=== PATIENT | male | born 1980 | race Caucasian/White ===

== ENCOUNTER 2021-12-19 07:48 | Day surgery (SDC) | payer OTHER, SELFPAY ==
[2021-12-19] VITALS (21 sets, daily range): BP systolic 114–145; BP diastolic 56–91; PULSE 67–98; RESP 14–25; TEMP 36.4–37.1; O2SAT 93–98
--- NOTE | ~2021-12-19 | CT_ITS ---
EXAMINATION: CT abdomen pelvis w con INDICATION: Right lower quadrant pain TECHNIQUE: Computed tomographic images of the abdomen and pelvis were obtained after the administrati on of 100 cc of Omnipaque 350 intravenous contrast. The dose-length product (DLP) was 1423.45 mGy-cm. Automated exposure control and iterative reconstruction technique were employed. COMPARISON: None available FINDINGS: The lung bases are clear. The heart size is normal. Cysts of the liver measure up to 2.5 cm in the right hepatic lobe. The spleen, pancreas, gallbladder, and adrenal glands are normal. The kid neys are unremarkable. No pathologically enlarged abdominal or pelvic lymph nodes are identified. The re is no free intraperitoneal gas or evidence of bowel obstruction. The dilated appendix measures melissa roximately 11 mm at its tip. There is a small amount of edematous stranding of the periappendiceal fa t. No perforation or adjacent fluid collection are identified. There is a fat-containing left inguina l hernia. A small fat-containing umbilical hernia is also noted. Colonic diverticulosis is present wi thout evidence of diverticulitis. IMPRESSION: 1. Uncomplicated acute appendicitis. Reviewed, dictated and finalized at location A.
--- NOTE | 2021-12-19 08:05 | ED.ABDPAIN ---
HPI - Abdominal Pain General Chief Complaint: Abdominal Pain Stated Complaint: RLQ pain Time Seen by Provider: 12/19/21 08:00 Source: patient Mode of arrival: ambulatory Limitations: no limitations History of Present Illness HPI narrative: Pt sasy he felt nauseated and had some burning lower abdominal pain about 0300, patient states the pain localized to his RLQ about 0500 and has persisted. Pt has no prior abdominal surgical history. Pt denies urininary symptoms MD elicited complaint: abdominal pain Pertinent past history: none Pain Consistency: constant Location: RLQ Severity: moderate Quality: aching Radiation: none Migration to: no migration Exacerbating factors: nothing Relieving factors: nothing Associated symptoms: nausea Related Data Allergies Allergy/AdvReac Type Severity Reaction Status Date / Time No Known Allergies Allergy Unverified 12/19/21 08:01 Review of Systems Review of Systems: All systems reviewed & are unremarkable except as noted in HPI and below PMFSH Past Medical History Medical History (Updated 12/19/21 @ 12:52 by David Bowden MD) Hyperlipidemia Snoring Surgical History Surgical History History of inguinal hernia repair, bilateral as a child Family History Family History Other No pertinent family history Social History Social History Social History: Patient designates his , Fannie, to be his medical decision-maker if needed. Smoking status: Never smoker Alcohol intake: current Alcohol use details: 3-4 drinks at night about 3 nights per week. Substance use: never Living arrangements: with family Additional living arrangements comments: Lives with his , Fannie. 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 Gender identity (if verbalized by the patient): Male Sexual Orientation (if Verbalized by the Patient): Straight or Heterosexual Exam Const: General: no acute distress Orientation/consciousness: patient oriented x3 Resp: Effort & Inspection: normal respiratory effort Auscultation: clear to auscultation bilaterally Cardio: Rate: regular rate Rhythm: regular rhythm GI: GI Palp: Yes Soft to palpation and Yes Tenderness to palpation present (GI) (RLQ at [facility]) Percussion: Yes normal to percussion Auscultation: normal bowel sounds Back/Spine/Pelvis: Back: no CVA tenderness Skin: General skin exam: normal color Rashes: no rashes Neuro: General: patient oriented x3, moves all extremities and no focal motor deficits Extrem: General: normal to inspection and no clubbing, cyanosis or edema Psych: Appearance: grossly normal Mental Status: mental status grossly normal Affect: normal affect Thought content: Yes Normal thought content present Course Course Emergency Course: d/w dr cifuentes will have PA come see pt Vital Signs Vital signs: Vital Signs Temperature 97.6 F 12/19/21 07:53 Pulse Rate 93 12/19/21 07:53 Respiratory Rate 18 12/19/21 07:53 Blood Pressure 145/80 H 12/19/21 07:53 Pulse Oximetry 98 12/19/21 07:53 Temperature 98.8 F 12/19/21 12:37 Pulse Rate 91 12/19/21 12:37 Respiratory Rate 18 12/19/21 12:37 Blood Pressure 134/76 12/19/21 12:37 Pulse Oximetry 98 12/19/21 12:37 MDM - Abdominal Pain Lab Data Result diagrams: 12/19/21 08:18 12/19/21 08:18 Labs: Lab Results 12/19/21 12/19/21 12/19/21 Range/Units 08:17 08:18 08:18 WBC 13.3 H (4.5-10.0) K/mm3 RBC 5.13 (4.6-6.20) M/mm3 Hgb 15.7 (14.0-18.0) g/dL Hct 45.4 (42.0-52.0) % MCV 88.5 (80-100) fl MCH 30.6 (26-34) pg MCHC 34.6 (32-36) g/dl RDW 12.2 (11.5-14.5) % Plt Count 232 (150-375) k/mm3 MPV 12.0 H (7.4-10.4) fl [place]
[2021-12-19] MEDS: ONDANSETRON INJ 4 MG/2 ML VIAL IV PUSH (08:28)
[2021-12-19 08:29] LABS: Basophils Percent Auto 0.3 % (0.2-1.2); Eosinophils Absolute Auto 0.1 K/mm3 (0-0.3); Eosinophils Percent Auto 0.4 % (0-4.4); Hematocrit 45.4 % (42.0-52.0); Hemoglobin 15.7 g/dL (14.0-18.0); Immature Granulocyte Absolute 0.08 K/mm3 (0.00-0.031); Immature Granulocyte Percent A 0.6 % (0-0.5); Lymphocytes Absolute Auto 1.15 K/mm3 (0.9-3.2); Lymphocytes Percent Auto 8.6 % (18.3-44.2); Mean Corpuscular HGB Conc 34.6 g/dl (32-36); Mean Corpuscular Hemoglobin 30.6 pg (26-34); Mean Corpuscular Volume 88.5 fl (80-100); Monocytes Absolute Auto 1.1 K/mm3 (0.1-0.6); Monocytes Percent Auto 8.1 % (2.6-8.5); Neutrophils Absolute Auto 10.9 K/mm3 (1.3-6.7); Platelet Count Result 232 k/mm3 (150-375); Red Blood Count 5.13 M/mm3 (4.6-6.20); Red Cell Distribution Width 12.2 % (11.5-14.5); White Blood Count 13.3 K/mm3 (4.5-10.0)
[2021-12-19 08:34] LABS: Mucus Urine Heavy /lpf; RBC Urine 0-2 /hpf (0-2); WBC Urine 0-3 /hpf
[2021-12-19 08:35] LABS: Appearance Urine Clear (Clear); Bilirubin Urine Negative (Negative); Blood Urine Negative (Negative); Color Urine Yellow (Yellow); Glucose Urine UA Negative (Negative); Ketones Urine Negative (Negative); Leukocyte Esterase Ur Negative LEU/UL (Negative); Nitrate Urine Negative (Negative); Protein Urine Negative (Negative); Specific Grav Ur >= 1.030 (1.001-1.035); Urobilinogen Urine 0.2 mg/dL (<2.0); pH Urine 5.5 (5.0-9.0)
[2021-12-19 08:36] LABS: Add Urine Microscopic? NO
[2021-12-19 08:38] LABS: Alanine Aminotransferase 33 U/L (4-50); Albumin Level 4.6 g/dL (3.5-5.1); Alkaline Phosphatase 102 U/L (38-126); Anion Gap 10 mmol/L (8-16); Aspartate Amino Transferase 32 U/L (17-59); Bilirubin,Total 0.8 mg/dL (0.2-1.3); Blood Urea Nitrogen 15 mg/dL (9-20); Calcium 8.9 mg/dL (8.4-10.2); Carbon Dioxide 23 mmol/L (22-30); Chloride 105 mmol/L (98-107); Estimated CRCL calculation 123 ml/min; Estimated Glomerular Filt Rate > 60; Glucose 120 mg/dL (65-110); Potassium 4.1 mmol/L (3.4-5.0); Sodium 138 mmol/L (137-145)
[2021-12-19 08:40] LABS: Partial Thromboplastin Time 20.2 SECONDS (22.3-36.8); Prothrombin Time 12.8 Seconds (11.1-14.7)
--- NOTE | 2021-12-19 10:51 | PM.IMHP ---
H&P: HPI History of Present Illness Date/Time: 12/19/21 10:51 Chief Complaint: RLQ abdominal pain Narrative: This is a 41 year old male who presented to the ER with complaints of RLQ abdominal pain starting this morning. He reports waking from sleep around 3:00 am with diffuse abdominal pain in his central abdomen. He reports this was initially a mild, burning pain. He tried going back to sleep, but felt like he had to have a BM. He was able to get up to the bathroom and had a normal BM, but started feeling more abdominal pain with associated nausea and chills. His pain began to localize to the RLQ and became a sharper pain. The pain continued to worsen, and he came into the ER for evaluation. CT scan of the abdomen and pelvis showed acute uncomplicated appendicitis. He had mild leukocytosis. Our service was consulted by the ED physician and he is now seen in the ER with his , Fannie, at the bedside. He reports his pain is aggravated by movement and bending. He denies any vomiting, fever, or change in bowel habits. He does report having pain in his RLQ a few months ago, but much more mild and resolved spontaneously. He reports having a colonoscopy over 10 years ago due to having GI issues and this was reportedly normal. He reports being told he may have IBS. He does not take any medications daily. He reportedly was prescribed a statin drug for hypercholesterolemia. but has not been compliant recently due to forgetting to take his medication. He denies any other symptoms at this time and was vaccinated for COVID with a Moderna booster within the past 6 months. Review of Systems Review of Systems: All systems reviewed & are unremarkable except as noted in HPI and below Constitutional: Constitutional: Reports as per HPI, Reports chills, Denies fatigue and Denies fever(s) Eyes: Eyes: Reports no additional eye complaints ENT: Reports system reviewed and no additional complaints, except as documented and Reports Normal hearing present Cardiovascular: Cardiovascular: Reports no additional cardiovascular complaints, Denies chest pain and Denies leg edema Respiratory: Respiratory: Reports no additional respiratory complaints, Denies cough and Denies dyspnea Gastrointestinal: Gastrointestinal: Reports as per HPI, Reports no additional gastrointestinal complaints, Reports abdominal pain, Denies bloating, Denies change in bowel habits, Denies change in stool character, Denies constipation, Denies diarrhea, Reports nausea and Denies vomiting Genitourinary: Genitourinary: Reports no additional male genitourinary complaints, Denies hematuria and Denies dysuria Musculoskeletal: Musculoskeletal: Reports no additional musculoskeletal complaints, Denies deformity and Denies joint swelling Integumentary/Breasts: Skin/Breast: Reports system reviewed and no additional complaints, except as docu and Denies wounds Neurologic: Reports system reviewed and no additional complaints, except as documented, Denies dizziness, Denies focal weakness, Denies numbness and Denies tingling PMFSH Past Medical History Medical History Hyperlipidemia Surgical History Surgical History History of inguinal hernia repair, bilateral as a child Family History Family History Other No pertinent family history Social History Social History Social History: Patient designates his , Fannie, to be his medical decision-maker if needed. Smoking status: Never smoker Alcohol intake: current Alcohol use details: 3-4 drinks at night about 3 nights per week. Substance use: never Living arrangements: with family Additional living arrangements comments: Lives with his , Fannie. Occupation/Education: occupation Additional occupation/educ
[2021-12-19] MEDS: ERTAPENEM 1 GM/NS 50 ML 1 GM/50 ML BAG IVPB (11:29)
[2021-12-19] MEDS: LACTATED RINGERS 1,000 ML 100 ML IV CONT (11:34)
--- NOTE | 2021-12-19 12:13 | WPDHPUPDATE1 ---
History and Physical Update Update Date/Time: 12/19/21 12:13 History and Physical has been reviewed, including an updated exam of the patient. There are NO changes in the patient's condition. Risks, benefits, and alternatives have been discussed and questions answered. Patient agrees to proceed with procedure.
--- NOTE | 2021-12-19 12:51 | WPDANESEPPF ---
Anes - Initial Pre Proc Eval Procedure: Operation Date: 12/19/21 14:00 Proposed Procedures p Laparoscopic Appendectomy - Brooks Jenkins MD Date/Time: 12/19/21 12:51 Surgeon: Brooks Jenkins MD Pre Op Diagnosis: RLQ pain Patient Data Age: 41 Gender: M Height: 1.78 m Weight: 120.22 kg Last Vital Signs Temp 37.1 C 12/19/21 12:37 Pulse 91 12/19/21 12:37 Resp 18 12/19/21 12:37 BP 134/76 12/19/21 12:37 Pulse Ox 98 12/19/21 12:37 Allergies Allergy/AdvReac Type Severity Reaction Status Date / Time No Known Allergies Allergy Unverified 12/19/21 08:01 Laboratory Tests 12/19/21 12/19/21 12/19/21 08:17 08:18 08:18 WBC 13.3 K/mm3 H K/mm3 (4.5-10.0) RBC 5.13 M/mm3 M/mm3 (4.6-6.20) Hgb 15.7 g/dL g/dL (14.0-18.0) Hct 45.4 % % (42.0-52.0) MCV 88.5 fl fl (80-100) MCH 30.6 pg pg (26-34) MCHC 34.6 g/dl g/dl (32-36) RDW 12.2 % % (11.5-14.5) Plt Count 232 k/mm3 k/mm3 (150-375) MPV 12.0 fl H fl (7.4-10.4) Immature Gran % (Auto) 0.6 % H % (0-0.5) Neut % (Auto) 82.0 % H % (45.5-73.1) Lymph % (Auto) 8.6 % L % (18.3-44.2) [place] % (Auto) 8.1 % % (2.6-8.5) Eos % (Auto) 0.4 % % (0-4.4) Baso % (Auto) 0.3 % % (0.2-1.2) Lymph # (Auto) 1.15 K/mm3 K/mm3 (0.9-3.2) [place] # (Auto) 1.1 K/mm3 H K/mm3 (0.1-0.6) Eos # (Auto) 0.1 K/mm3 K/mm3 (0-0.3) Baso # (Auto) 0.0 K/mm3 K/mm3 (0.0-0.1) Abs Immat Gran (auto) 0.08 K/mm3 H K/mm3 (0.00-0.031) Absolute Neuts (auto) 10.9 K/mm3 H K/mm3 (1.3-6.7) Absolute Nucleated RBC 0.0 K/mm3 K/mm3 (0.0-0.012) Nucleated RBC % 0.0 % % (0.0-0.2) PT 12.8 Seconds Seconds (11.1-14.7) INR 1.0 APTT 20.2 SECONDS L SECONDS (22.3-36.8) Sodium Potassium Chloride Carbon Dioxide Anion Gap BUN Creatinine Estim Creat Clear Calc Estimated GFR Glucose Calcium Total Bilirubin AST ALT Alkaline Phosphatase Total Protein Albumin Urine Color Yellow (Yellow) Urine Appearance Clear (Clear) Urine pH 5.5 (5.0-9.0) Ur Specific [place] >= 1.030 (1.001-1.035) Urine Protein Negative mg/dL mg/dL (Negative) Urine Glucose (UA) Negative mg/dL mg/dL (Negative) Urine Ketones Negative mg/dL mg/dL (Negative) Ur Blood (Man) Negative (Negative) Urine Nitrate Negative (Negative) Urine Bilirubin Negative (Negative) Urine Urobilinogen 0.2 mg/dL mg/dL (<2.0) Leukocyte Esterase Rfl Negative KIM/UL KIM/UL (Negative) Urine RBC 0-2 /hpf /hpf (0-2) Urine WBC 0-3 /hpf /hpf Urine Mucus Heavy /lpf H /lpf 12/19/21 08:18 WBC RBC Hgb Hct MCV MCH MCHC RDW Plt Count MPV Immature Gran % (Auto) Neut % (Auto) Lymph % (Auto) [place] % (Auto) Eos % (Auto) Baso % (Auto) Lymph # (Auto) [place] # (Auto) Eos # (Auto) Baso # (Auto) Abs Immat Gran (auto) Absolute Neuts (auto) Absolute Nucleated RBC Nucleated RBC % PT INR APTT Sodium 138 mmol/L mmol/L (137-145) Potassium 4.1 mmol/L mmol/L (3.4-5.0) Chloride 105 mmol/L mmol/L (98-107) Carbon Dioxide 23 mmol/L mmol/L (22-30) Anion Gap 10 mmol/L mmol/L (8-16) BUN 15 mg/dL mg/dL (9-20) Creatinine 0.90 mg/dL mg/dL (0.7-1.3) Estim Creat Clear Calc 123 ml/min ml/min Estimated GFR > 60
[2021-12-19] MEDS: LACTATED RINGERS 1,000 ML 30 ML IV CONT ×2 (15:26)
--- NOTE | 2021-12-19 15:28 | W.PM.PROC2 ---
Procedure Note - Detailed Date of Procedure 12/19/21 Pre-op Diagnosis 1. Acute uncomplicated appendicitis 2. Small umbilical hernia by CT Post-op Diagnosis Other (Same plus a confirmed small apparent recurrent indirect left inguinal hernia) Procedure Performed 1. laparoscopic appendectomy 2. Suture repair of small umbilical hernia Surgeon Brooks Jenkins MD [employer] [facility]. [place] [employer] Anesthesia General Indications Patient had onset of mid abdominal pain radiating to the right lower quadrant approximately 12 hours ago. This gradually increased in the right lower quadrant along with loose stools and nausea. Therefore the patient came to the emergency room. (See report) CT scan confirmed acute uncomplicated appendicitis. Findings Patient had a fairly long appendix that was mildly inflamed on its distal 2/3. Patient also had a small to medium size opening to a apparent recurrent left indirect inguinal hernia. Patient had an approximate 1 cm rounded umbilical defect with incarcerated omentum within it. Description of Procedure The patient was seen in the emergency Room. The risks, benefits, complications, treatment options, and expected outcomes were discussed with the patient and/or family. The possibilities of reaction to medication, pulmonary aspiration, perforation of viscus, bleeding, recurrent infection, finding a normal appendix, the need for additional procedures, failure to diagnose a condition, and creating a complication requiring transfusion or operation were discussed. There was concurrence with the proposed plan and informed consent was obtained. The site of surgery was properly noted/marked. The patient was taken to Operating Room, and a time out was preformed which identified this as the proper patient, and the procedure verified as laparoscopic appendectomy, possible open. The patient was placed in the supine position and general anesthesia was induced, along with placement of an orogastric tube, SCD hose, and a Smith catheter. The abdomen was prepped and draped in a sterile fashion. Because the patient had a known small umbilical fascial defect the Miller cannula technique was utilized. To do this I made a transverse incision across the umbilical area, through its center after instilling local anesthetic and using a 15 blade knife. I then carried this down to the midline fascia. Under direct vision the midline fascia was inspected and we found medially upon entry some incarcerated omentum and a thin hernia sac. The skin of the umbilicus was dissected off of the structures inferiorly and superiorly creating small skin flaps. Then using the laparoscopic scissors I dissected away omental fat and some of the hernia sac and remove this to the level of the fascia at the umbilicus. Then the peritoneum was entered under direct vision after placing 2 sutures of 0 Vicryl in the fascia on either side of midline fascial defect. The Miller cannula was then slid into place into the peritoneum under direct vision. The pneumoperitoneum was then established to steady pressure of 15 mm Hg. A 12 mm laparoscopic port was placed through a transverse suprapubic incision. An additional 5 mm cannula was then placed in the left upper quadrant at the level half-way between the left costal margin and the umbilicus under direct vision. A careful evaluation of the entire abdomen was carried out. It was at this time that we carefully inspected the left groin area and indeed confirmed that there was a opening to a small to medium-sized left inguinal hernia with no bowel within it. The patient was placed in Trendelenburg and left side down position. The small intestines were retracted in the cephalad and left lateral direction away from the pelvis and right lower quadrant. The patient was found to have an enlarged and inflamed appendix that was extending up on to the abdominal wall right at about the level of the pelvic brim. There were some mild inflammato
[2021-12-19] MEDS: fentaNYL CITRATE INJ (*CRX) 100 MCG/2 ML VIAL 25 MCG IV PUSH (15:48)
[2021-12-19] MEDS: oxyCODONE HCL (*CRX) 5 MG TAB IR PO (16:51)
== END 2021-12-19 17:22 | disposition home or self-care (01) ==
LOC: ANHED 11:17 → ANHSURGERY 11:23
PROVIDERS: Emergency Provider Emergency Medicine; PCP Physician Assistant; Visit Provider Surgery
PROC: 0DTJ4ZZ Resection of Appendix, Percutaneous Endoscopic Approach (ICD-10-PCS; CPT 44970; principal; 2021-12-19 14:00)
DX: K35.30 Acute appendicitis with localized peritonitis, without perforation or gangrene (principal); K42.0 Umbilical hernia with obstruction, without gangrene; K40.91 Unilateral inguinal hernia, without obstruction or gangrene, recurrent; E78.5 Hyperlipidemia, unspecified
CPT/HCPCS: 44970; 36415; 74177; 80053; 81003; 85025; 85610; 85730; 88302; 88304; 96361; 96374; 96375; 99285; A9270; J0330; J1100; J1170; J1335; J2250; J2370; J2405; J2704; J3010; J7030; J7120; Q9967

== ENCOUNTER 2023-03-22 08:10 | Emergency (ER) | payer BC, SELFPAY ==
--- NOTE | ~2023-03-22 | XR_ITS ---
Lumbosacral Spine: AP and lateral views Clinical History: Pain Findings: The normal lordotic curve is maintained. The vertebral bodies and posterior elements are i ntact. The intervertebral disc spaces are preserved. There is mild facet arthropathy at the lower ara mbar spine. The sacroiliac joints are normally outlined. Impression: Mild facet arthropathy at the lower lumbar spine. Reviewed, dictated and finalized at location . Impression: Mild facet arthropathy at the lower lumbar spine.
[2023-03-22 08:13] VITALS: BP 175/100; PULSE 78; RESP 18; TEMP 36.6; O2SAT 97
[2023-03-22] MEDS: KETOROLAC (*BKC) 60 MG/2 ML VIAL IM (08:47)
[2023-03-22 09:06] LABS: Appearance Urine Clear (Clear); Bilirubin Urine Negative (Negative); Blood Urine Negative (Negative); Color Urine Yellow (Yellow); Glucose Urine UA Negative (Negative); Ketones Urine Negative (Negative); Leukocyte Esterase Ur Negative LEU/UL (Negative); Nitrate Urine Negative (Negative); Protein Urine Negative (Negative); Specific Grav Ur 1.021 (1.001-1.035); Urobilinogen Urine 0.2 mg/dL (<2.0)
[2023-03-22 09:09] LABS: Add Urine Microscopic? NO
[2023-03-22 10:11] VITALS: PULSE 64; RESP 16; O2SAT 96
[2023-03-22 10:16] VITALS: BP 140/98; PULSE 70; RESP 16; O2SAT 97
[2023-03-22 10:31] VITALS: BP 137/97; PULSE 71; RESP 8; O2SAT 97
--- NOTE | 2023-03-22 10:54 | ED.BACK ---
HPI - Back Pain/Injury General Chief Complaint: Back Pain/Injury Stated Complaint: lower back pain radiating to groin Time Seen by Provider: 03/22/23 08:28 History of Present Illness HPI Narrative: Patient is a 42-year-old male who presents ER with low back pain. Reports began a couple days ago after swinging a golf club at [employer]. It was aching in the left side. This began radiating around into his groin. Burning in nature. No urinary frequency urgency or dysuria. No hematuria. No history of kidney stones. No proximal isms of pain. No sweats or nausea/vomiting. He reports symptoms worsen when he twists or bends. He has only tried 1 dose of anti-inflammatory medication which did not help. Reports when he was swinging the golf club he did not have any sudden onset pain or discomfort. Related Data Allergies Allergy/AdvReac Type Severity Reaction Status Date / Time No Known Allergies Allergy Verified 03/22/23 08:30 Review of Systems Review of Systems: All systems reviewed & are unremarkable except as noted in HPI and below Constitutional: Constitutional: Denies chills, Denies fatigue and Denies fever(s) Gastrointestinal: Gastrointestinal: Denies abdominal pain, Denies nausea and Denies vomiting Genitourinary: Genitourinary: Denies hematuria, Denies dysuria, Denies testicular pain and Denies urinary frequency Musculoskeletal: Musculoskeletal: Reports back pain, Denies arthralgias and Denies joint swelling Neurologic: Denies focal weakness and Denies numbness PMFSH Past Medical History Medical History Hyperlipidemia Snoring Surgical History Surgical History H/O umbilical hernia repair 12/19/21 History of inguinal hernia repair, bilateral as a child History of laparoscopic appendectomy 12/19/21 Family History Family History Other No pertinent family history Social History Social History Social History: Patient designates his , Fannie, to be his medical decision-maker if needed. Smoking status: Former smoker Alcohol intake: current Alcohol use details: 3-4 drinks at night about 3 nights per week. Substance use: never Living arrangements: with family Additional living arrangements comments: Lives with his , Fannie. 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 HEAD: Normocephalic, atraumatic. ENT: Mucous membranes moist. Back: No reproducible midline tenderness to T/L spine, no reproducible paraspinal muscular tenderness. : Normal appearing penis without discharge. No testicular tenderness or swelling. No hernia defect. ABDOMEN: Soft, nontender, nondistended. EXTREMITIES: Normal range of motion. No edema. SKIN: Warm, dry, no rash. NEURO: Alert and oriented x3. PSYCH: Normal mood and affect. Course Course Emergency Course: Patient informed of results. Suspect low back strain with radicular symptoms as its been gradual onset. Will treat with anti-inflammatories and muscle relaxers. Patient verbalized understanding Vital Signs Vital signs: Vital Signs Temperature 97.8 F 03/22/23 08:13 Pulse Rate 78 03/22/23 08:13 Respiratory Rate 18 03/22/23 08:13 Blood Pressure 175/100 H 03/22/23 08:13 Pulse Oximetry 97 03/22/23 08:13 Oxygen Delivery Room Air 03/22/23 08:13 Temperature 97.8 F 03/22/23 08:13 Pulse Rate 68 03/22/23 11:01 Respiratory Rate 13 03/22/23 11:01 Blood Pressure 150/89 H 03/22/23 11:01 Pulse Oximetry 96 03/22/23 11:01 Oxygen
[2023-03-22 11:01] VITALS: BP 150/89; PULSE 68; RESP 13; O2SAT 96
== END 2023-03-22 11:18 | disposition home or self-care (01) ==
PROVIDERS: Emergency Provider Emergency Medicine; PCP Physician Assistant
DX: S39.012A Strain of muscle, fascia and tendon of lower back, initial encounter (principal); M54.16 Radiculopathy, lumbar region; E78.5 Hyperlipidemia, unspecified; Z87.891 Personal history of nicotine dependence; Y93.53 Activity, golf; X50.1XXA Overexertion from prolonged static or awkward postures, initial encounter
CPT/HCPCS: 72100; 81003; 96372; 99283; J1885